=== PATIENT | female | born 2000 | race Caucasian/White ===

== ENCOUNTER → 2025-03-17 13:43 | Outpatient (REF) | payer OTHER, SELFPAY | LOC: PNTC 13:43 | PROVIDERS: ATTENDING PHYSICIAN Obstetrics & Gynecology | DX: O36.70X0 Maternal care for viable fetus in abdominal pregnancy, unspecified trimester, not applicable or unspecified (principal) | CPT/HCPCS: 76801 ==

== ENCOUNTER → 2025-03-30 15:54 | Outpatient (REF) | payer OTHER, SELFPAY | LOC: PNTC 15:54 | PROVIDERS: ATTENDING PHYSICIAN Obstetrics & Gynecology | DX: O36.8310 Maternal care for abnormalities of the fetal heart rate or rhythm, first trimester, not applicable or unspecified (principal) | CPT/HCPCS: 76815 ==

== ENCOUNTER → 2025-04-13 13:22 | Outpatient (REF) | payer OTHER, SELFPAY | LOC: PNTC 13:22 | PROVIDERS: ATTENDING PHYSICIAN Obstetrics & Gynecology | DX: O28.5 Abnormal chromosomal and genetic finding on antenatal screening of mother (principal); Z36.9 Encounter for antenatal screening, unspecified | CPT/HCPCS: 76801; 76813 ==

== ENCOUNTER → 2025-04-30 13:36 | Outpatient (REF) | payer OTHER, SELFPAY | LOC: PNTC 13:36 | PROVIDERS: ATTENDING PHYSICIAN Obstetrics & Gynecology | DX: O28.8 Other abnormal findings on antenatal screening of mother (principal) | CPT/HCPCS: 36415; 59000; 76946; J2790 ==

== ENCOUNTER → 2025-05-05 10:24 | Outpatient (REF) | payer OTHER, SELFPAY | LOC: PNTC 10:24 | PROVIDERS: ATTENDING PHYSICIAN Obstetrics & Gynecology | DX: O28.8 Other abnormal findings on antenatal screening of mother (principal) | CPT/HCPCS: 76805 ==

== ENCOUNTER → 2025-06-01 14:29 | Outpatient (REF) | payer OTHER, SELFPAY | LOC: PNTC 14:29 | PROVIDERS: ATTENDING PHYSICIAN Obstetrics & Gynecology; OTHER PHYSICIAN Obstetrics & Gynecology | DX: O35.1 Maternal care for (suspected) chromosomal abnormality in fetus (principal); Z36.3 Encounter for antenatal screening for malformations; Z36.86 Encounter for antenatal screening for cervical length | CPT/HCPCS: 76811; 76817 ==

== ENCOUNTER → 2025-06-29 13:35 | Outpatient (REF) | payer OTHER, SELFPAY | LOC: PNTC 13:35 | PROVIDERS: ATTENDING PHYSICIAN Obstetrics & Gynecology | DX: O35.11X0 Maternal care for (suspected) chromosomal abnormality in fetus, Trisomy 13, not applicable or unspecified (principal); O28.3 Abnormal ultrasonic finding on antenatal screening of mother | CPT/HCPCS: 76816 ==